=== PATIENT | female | born 1995 | race Caucasian/White ===

== ENCOUNTER 2017-01-19 13:41 | Emergency (ER) | payer MEDICAID ==
[2017-01-19 13:41] VITALS: BMI 30.8
[2017-01-19 13:59] VITALS: RESP 18; TEMP 98.2; O2SAT 99
[2017-01-19] MEDS ORDERED: Sodium Chloride 0.9% 1,000 ML IV ONE (14:20)
[2017-01-19] MEDS ORDERED: Sodium Chloride 0.9% 1,000 ML ONE (14:36)
[2017-01-19 14:40] LABS: BASO % 0.8 % (0.0-2.0); EOS # 0.1 K/uL (0.0-0.7); EOS % 1.9 % (0.0-4.0); LYMPH % 39.6 % (20.0-40.0); MEAN CELL VOLUME 86.1 fL (81.0-99.0); MEAN CORPUSCULAR HEMOGLOBIN 27.2 pg (27.0-31.0); MEAN CORPUSCULAR HGB CONC 31.6 g/dL (33.0-37.0); MEAN PLATELET VOLUME 8.1 fL (7.2-11.7); MONO # 0.6 K/uL (0.0-0.8); MONO % 11.2 % (0.0-10.0); RED CELL DISTRIBUTION WIDTH 12.6 % (11.5-14.5); WHITE BLOOD COUNT 5.1 K/uL (4.8-10.8)
--- NOTE | 2017-01-19 14:44 | C.PDOC ---
History Of Present Illness 21 y/o female c/o occasional mild episodes of nausea, vomiting, loose stools, and dizziness that has been going on for 4 days. Pt notes eating and drinking well, but with persistent mild N/V/D, and dizziness. Pt denies fever, chills, abdominal pain, vaginal bleeding or discharge, chest pain, dysuria, hematuria, or any other complaints. Pt notes being possibly with her last menstrual period being December 03. Time Seen by Provider: 01/19/17 14:16 Chief Complaint (Nursing): GI Problem History Per: Patient History/Exam Limitations: no limitations Onset/Duration Of Symptoms: Days Current Symptoms Are (Timing): Still Present Severity: Mild Recent travel outside of the [place]: No Additional History Per: Patient Abnormal Vaginal Bleeding: No Last Menstral Period: December 03 Past Medical History Reviewed: Historical Data, Nursing Documentation, Vital Signs Vital Signs: Last Vital Signs Temp 98.2 F 01/19/17 13:58 Pulse 75 01/19/17 13:58 Resp 18 01/19/17 13:58 BP 93/65 L 01/19/17 13:58 Pulse Ox 99 01/19/17 14:57 - [employer] Procedures MANUAL ASSIST DELIV NEC (06/10/13) Family History: States: Unknown Family Hx - Social History Hx Tobacco Use: No Hx Alcohol Use: No Hx Substance Use: No - Immunization History Hx Tetanus Toxoid Vaccination: No Hx Influenza Vaccination: No Hx Pneumococcal Vaccination: No Review Of Systems Except As Marked, All Systems Reviewed And Found Negative. Constitutional: Negative for: Fever, Chills Cardiovascular: Negative for: Chest Pain Gastrointestinal: Positive for: Nausea, Vomiting, Diarrhea. Negative for: Abdominal Pain Genitourinary: Negative for: Dysuria, Hematuria, Vaginal Discharge, Vaginal Bleeding Neurological: Positive for: Dizziness Physical Exam - Physical Exam Appears: Non-toxic, No Acute Distress Skin: Warm, Dry Head: Atraumatic, Normacephalic Eye(s): bilateral: Normal Inspection Oral Mucosa: Moist Throat: Normal, No Exudate Chest: Symmetrical Cardiovascular: Rhythm Regular Respiratory: Normal Breath Sounds, No Accessory Muscle Use, No Rales, No Rhonchi , No Wheezing Gastrointestinal/Abdominal: Soft, No Tenderness, No Guarding, No Rebound Back: Normal Inspection, No CVA Tenderness Neurological/Psych: Oriented x3, Normal Speech, Normal Cognition Gait: Steady ED Course And Treatment - Laboratory Results Result Diagrams: 01/19/17 14:34 01/19/17 14:34 Lab Interpretation: No Acute Changes Interpretation Of Abnormal: [facility] [place] [address].0 Urine POC: Positive O2 Sat by Pulse Oximetry: 99 (RA) Pulse Ox Interpretation: Normal Reevaluation Time: 16:30 Reassessment Condition: Improved (after IV fluids) Medical Decision Making Medical Decision Making: Impression: 21 y/o female c/o mild occasional episodes of nausea, vomiting, loose stools, and dizziness that has been going on for 4 days. Plans: -Blood labs -IV fluids -Reassess Disposition Counseled Patient/Family Regarding: Studies Performed, Diagnosis, Need For Followup - Disposition Referrals: [facility] [Outside] Disposition: HOME/ ROUTINE Disposition Time: 16:30 Condition: IMPROVED Instructions: (ED) - Clinical Impression Clinical Impression: - Scribe Statement The provider has reviewed the documentation as recorded by the Scribe Kingston portillo All medical record entries made by the Bryanibadi were at my direction and personally dictated by me. I have reviewed the chart and agree that the record accurately reflects my personal performance of the history, physical exam, medical decision making, and the department course for this patient. I have also personally directed, reviewed, and agree with the discharge instructions and disposition.
[2017-01-19 14:59] LABS: CHLORIDE 104 mmol/L (98-107); POTASSIUM 3.5 mmol/L (3.6-5.2); SODIUM 137 mmol/L (132-148)
[2017-01-19 15:01] LABS: ALB/GLOB RATIO 1.2 (1.0-2.1); ALKALINE PHOSPHATASE 54 U/L (38-126); AST/SGOT 20 U/L (14-36); BILIRUBIN,TOTAL 0.6 mg/dL (0.2-1.3); BLOOD UREA NITROGEN 4 mg/dL (7-17); CARBON DIOXIDE 22 mmol/L (22-30); GFR AFRICAN-AMERICAN > 60; TOTAL PROTEIN 7.4 g/dL (6.3-8.3)
[2017-01-19 15:02] LABS: ALT/SGPT 17 U/L (9-52); CALCIUM 9.2 mg/dl (8.6-10.4); GLUCOSE,RANDOM 82 mg/dL (65-105)
[2017-01-19 15:11] LABS: RBC URINE 1 /hpf (0-3); URINE BILIRUBIN NEGATIVE (NEGATIVE); URINE BLOOD NEGATIVE (NEGATIVE); URINE COLOR Yellow (YELLOW); URINE GLUCOSE (UA) NORMAL (Normal); URINE KETONE NEGATIVE (NEGATIVE); URINE LEUKOCYTE ESTERASE 1+ Leu/uL (Negative); URINE PROTEIN 1+ mg/dL (NEGATIVE); WBC URINE 4 /hpf (0-5)
[2017-01-19 17:08] VITALS: BP 100/69; PULSE 71
== END 2017-01-19 17:08 | disposition home or self-care (01) ==
LOC: C.ER 13:41
DX: O26.891 Other specified pregnancy related conditions, first trimester (principal); Z3A.00 Weeks of gestation of pregnancy not specified
CPT/HCPCS: 80053; 81001; 84702; 84703; 85025; 96360; 99284; J7040

== ENCOUNTER 2017-10-10 02:57 | Emergency (ER) | payer MEDICAID ==
[2017-10-10 02:58] VITALS: BMI 30.8
[2017-10-10 03:16] VITALS: O2SAT 98
[2017-10-10] MEDS ORDERED: Sodium Chloride 0.9% 1,000 ML IV ONE (03:27)
[2017-10-10 03:43] LABS: HCG,QUALITATIVE URINE NEGATIVE (NEGATIVE)
[2017-10-10 03:45] LABS: URINE BILIRUBIN NEGATIVE (NEGATIVE); URINE BLOOD NEGATIVE (NEGATIVE); URINE CLARITY Hazy (Clear); URINE COLOR Yellow (YELLOW); URINE GLUCOSE (UA) NORMAL (Normal); URINE LEUKOCYTE ESTERASE TRACE Leu/uL (Negative); URINE PROTEIN NEGATIVE (NEGATIVE)
--- NOTE | 2017-10-10 03:47 | C.PDOC ---
History Of Present Illness 22 year old female with a PMHx of morbid obesity presents to the ER complaining of abdominal pain since Tuesday. Pain worsens at the epigastric region. Patient recently traveled from the [place] 1 week ago. No fever, chills, vomiting, diarrhea or other complaints. Time Seen by Provider: 10/10/17 03:16 Chief Complaint (Nursing): Abdominal Pain History Per: Patient History/Exam Limitations: no limitations Onset/Duration Of Symptoms: Days (x 2) Current Symptoms Are (Timing): Still Present Location Of Pain/Discomfort: Epigastric Past Medical History Reviewed: Historical Data, Nursing Documentation, Vital Signs Vital Signs: Last Vital Signs Temp 98.4 F 10/10/17 05:36 Pulse 73 10/10/17 05:36 Resp 20 10/10/17 05:36 BP 93/65 L 10/10/17 05:36 Pulse Ox 98 10/10/17 05:36 - Medical History PMH: No Chronic Diseases - [employer] Procedures MANUAL ASSIST DELIV NEC (06/10/13) Family History: States: Unknown Family Hx - Social History Hx Tobacco Use: No Hx Alcohol Use: No Hx Substance Use: No - Immunization History Hx Tetanus Toxoid Vaccination: No Hx Influenza Vaccination: No Hx Pneumococcal Vaccination: No Review Of Systems Except As Marked, All Systems Reviewed And Found Negative. Constitutional: Negative for: Fever, Chills Gastrointestinal: Positive for: Abdominal Pain. Negative for: Vomiting, Diarrhea Physical Exam - Physical Exam Appears: Non-toxic, No Acute Distress Skin: Normal Color, Warm, Dry Head: Atraumatic, Normacephalic Eye(s): bilateral: Normal Inspection, PERRL, EOMI Nose: Normal Oral Mucosa: Moist Neck: Normal ROM, Supple Chest: Symmetrical Cardiovascular: Rhythm Regular, No Murmur Respiratory: Normal Breath Sounds, No Accessory Muscle Use Gastrointestinal/Abdominal: Soft, Tenderness (mild epigastric tenderness), No Guarding, No Rebound Extremity: Bilateral: Atraumatic, Normal ROM, Painful To Bear Weight Neurological/Psych: Oriented x3, Normal Speech ED Course And Treatment - Laboratory Results Result Diagrams: 10/10/17 04:36 10/10/17 04:36 O2 Sat by Pulse Oximetry: 98 (RA) Pulse Ox Interpretation: Normal Medical Decision Making Medical Decision Making: Impression: 22 year old with abdominal pain suspect gastritis pancreatitis pud. - bedside us no e/o of cholecystitis Time: 3:27 Initial Plan: * Bilirubin * CMP * Lipase * CBC * PTT * PT * Urinalysis * Urine preg * IV fluids * Zofran 4 mg IVP * Protonix 40 mg IVP * Reevaluation pt reassessed all symptoms resolved smiling abd soft no ttp. pt asking for dc. labs unremarkable. advise close outpt fu and return precautions Disposition - Disposition Referrals: El Vasquez MD [Staff Provider] - Disposition: HOME/ ROUTINE Disposition Time: 04:54 Condition: STABLE Additional Instructions: please follow up with your doctor. return to er with worsening symptoms or concerns Prescriptions: Famotidine [Pepcid] 20 mg PO DAILY #20 tab Instructions: Acute Abdomen (Belly Pain) Forms: [employer] (Arabic) - Clinical Impression Clinical Impression: Abdominal pain - Scribe Statement The provider has reviewed the documentation as recorded by the Rosa Gagnon Provider Attestation: All medical record entries made by the Bryanibe were at my direction and personally dictated by me. I have reviewed the chart and agree that the record accurately reflects my personal performance of the history, physical exam, medical decision making, and the department course for this patient. I have also personally directed, reviewed, and agree with the discharge instructions and disposition.
[2017-10-10] MEDS ORDERED: Sodium Chloride 0.9% 1,000 ML ONE (04:07)
[2017-10-10 04:40] LABS: BASO # 0.1 K/uL (0.0-0.2); BASO % 0.8 % (0.0-2.0); EOS # 0.2 K/uL (0.0-0.7); EOS % 2.9 % (0.0-4.0); HEMOGLOBIN 12.9 g/dL (11.0-16.0); LYMPH # 1.3 K/uL (1.0-4.3); LYMPH % 19.6 % (20.0-40.0); MEAN CORPUSCULAR HEMOGLOBIN 28.3 pg (27.0-31.0); MEAN CORPUSCULAR HGB CONC 32.5 g/dL (33.0-37.0); MEAN PLATELET VOLUME 7.8 fL (7.2-11.7); MONO # 0.7 K/uL (0.0-0.8); MONO % 9.8 % (0.0-10.0); NEUT # 4.5 K/uL (1.8-7.0); NEUT % 66.9 % (50.0-75.0); NRBC % 0.1 % (0.0-2.0); RBC 4.55 Mil/uL (3.80-5.20); WHITE BLOOD COUNT 6.8 K/uL (4.8-10.8)
[2017-10-10 04:47] LABS: PROTHROMBIN TIME 11.6 SECONDS (9.7-12.2)
[2017-10-10 04:52] LABS: ALB/GLOB RATIO 1.1 (1.0-2.1); ALBUMIN 4.1 g/dL (3.5-5.0); ALT/SGPT 32 U/L (9-52); AST/SGOT 30 U/L (14-36); BILIRUBIN,DIRECT 0.3 mg/dL (0.0-0.4); BLOOD UREA NITROGEN 8 mg/dL (7-17); GFR AFRICAN-AMERICAN > 60; GFR NON-AFRICAN AMERICAN > 60; LIPASE 90 U/L (23-300)
[2017-10-10 05:38] VITALS: BP 93/65; PULSE 73; RESP 20; TEMP 98.4
== END 2017-10-10 05:38 | disposition home or self-care (01) ==
LOC: C.ER 02:57
DX: R10.9 Unspecified abdominal pain (principal); E66.01 Morbid (severe) obesity due to excess calories
CPT/HCPCS: 80053; 81001; 82248; 83690; 84703; 85025; 85610; 85730; 96361; 96374; 96375; 99284; C9113; J2405; J7040

== ENCOUNTER 2018-05-15 11:54 | Emergency (ER) | payer MEDICAID ==
[2018-05-15 11:54] VITALS: BMI 30.8
[2018-05-15 12:28] VITALS: RESP 18
[2018-05-15 13:47] LABS: BASO # 0.1 K/uL (0.0-0.2); BASO % 0.8 % (0.0-2.0); EOS # 0.2 K/uL (0.0-0.7); EOS % 3.1 % (0.0-4.0); HEMOGLOBIN 14.2 g/dL (11.0-16.0); LYMPH # 2.2 K/uL (1.0-4.3); LYMPH % 30.2 % (20.0-40.0); MEAN CELL VOLUME 86.3 fL (81.0-99.0); MEAN CORPUSCULAR HEMOGLOBIN 28.1 pg (27.0-31.0); MEAN CORPUSCULAR HGB CONC 32.5 g/dL (33.0-37.0); MEAN PLATELET VOLUME 8.3 fL (7.2-11.7); MONO # 0.7 K/uL (0.0-0.8); MONO % 9.3 % (0.0-10.0); NEUT # 4.1 K/uL (1.8-7.0); NEUT % 56.6 % (50.0-75.0); NRBC % 0.1 % (0.0-2.0); RBC 5.06 Mil/uL (3.80-5.20); RED CELL DISTRIBUTION WIDTH 13.1 % (11.5-14.5); WHITE BLOOD COUNT 7.3 K/uL (4.8-10.8)
[2018-05-15 13:51] LABS: HCG,QUALITATIVE URINE NEGATIVE (NEGATIVE)
[2018-05-15 13:56] LABS: SQUAMOUS EPITHIAL 51 /hpf (0-5); URINE BACTERIA RARE (<OCC); URINE BILIRUBIN NEGATIVE (NEGATIVE); URINE BLOOD NEGATIVE (NEGATIVE); URINE CLARITY Hazy (Clear); URINE COLOR Yellow (YELLOW); URINE GLUCOSE (UA) NORMAL (Normal); URINE LEUKOCYTE ESTERASE 1+ Leu/uL (Negative); URINE PROTEIN NEGATIVE (NEGATIVE); URINE UROBILINOGEN NORMAL mg/dL (0.2-1.0)
[2018-05-15 14:31] LABS: ALB/GLOB RATIO 1.4 (1.0-2.1); ALBUMIN 4.8 g/dL (3.5-5.0); ALT/SGPT 27 U/L (9-52); AST/SGOT 38 U/L (14-36); BLOOD UREA NITROGEN 7 mg/dL (7-17); CALCIUM 9.4 mg/dl (8.6-10.4); GFR NON-AFRICAN AMERICAN > 60; LIPASE 136 U/L (23-300)
[2018-05-15 14:43] VITALS: BP 123/79; PULSE 84; TEMP 97.6
--- NOTE | 2018-05-15 14:46 | C.PDOC ---
History Of Present Illness 23-year-old female, denies significant PMHx, presents to the emergency department with complaints of suprapubic abdominal pain since this morning. Patient denies any fevers, chills, sore throat, cough, chest pain, vomiting, diarrhea, UTI symptoms , vaginal irritation or discharge. Ambulate to Ed for evaluation, not in any apparent distress.. Time Seen by Provider: 05/15/18 13:26 Chief Complaint (Nursing): Abdominal Pain History Per: Patient History/Exam Limitations: no limitations Current Symptoms Are (Timing): Still Present Severity: Moderate Location Of Pain/Discomfort: Suprapubic Past Medical History Reviewed: Historical Data, Nursing Documentation, Vital Signs Vital Signs: Last Vital Signs Temp 98.1 F 05/15/18 12:24 Pulse 77 05/15/18 12:24 Resp 18 05/15/18 12:24 BP 112/80 05/15/18 12:24 Pulse Ox 96 05/15/18 12:24 - [employer] Procedures MANUAL ASSIST DELIV NEC (06/10/13) Family History: States: No Known Family Hx - Social History Hx Tobacco Use: No Hx Alcohol Use: No Hx Substance Use: No - Immunization History Hx Tetanus Toxoid Vaccination: No Hx Influenza Vaccination: No Hx Pneumococcal Vaccination: No Review Of Systems Constitutional: Negative for: Fever, Chills Respiratory: Negative for: Shortness of Breath Gastrointestinal: Negative for: Nausea, Vomiting Genitourinary: Positive for: Pelvic Pain. Negative for: Dysuria, Frequency, Incontinence, Hematuria, Vaginal Discharge, Vaginal Bleeding Musculoskeletal: Negative for: Back Pain Skin: Negative for: Rash Neurological: Negative for: Weakness, Numbness, Headache, Dizziness Physical Exam - Physical Exam Appears: Well, Non-toxic, No Acute Distress Skin: Warm, Dry, No Rash Head: Normacephalic Eye(s): bilateral: PERRL Oral Mucosa: Moist, No Drooling Lips: Normal Appearing Throat: No Erythema, No Drooling Neck: Normal ROM, Trachea Midline, Supple Cardiovascular: Rhythm Regular, No Murmur Respiratory: Normal Breath Sounds, No Accessory Muscle Use Gastrointestinal/Abdominal: Soft, Tenderness (MILD SUPRAPUBIC), No Distention, No Guarding, No Rebound Back: No CVA Tenderness Extremity: Normal ROM, No Pedal Edema, No Deformity Neurological/Psych: Oriented x3, Normal Speech ED Course And Treatment - Laboratory Results Result Diagrams: 05/15/18 13:41 05/15/18 14:13 Lab Interpretation: Normal Urine POC: Negative O2 Sat by Pulse Oximetry: 96 Pulse Ox Interpretation: Normal (RA) Progress Note: On re-eval, pt is afebrile, hemodynamicalys table. non-toxic. Tolerate Po well in ED. ENT: no acute findings. neck: Supple, (-) meningeal sign. Lungs: CTA B/L, BS equal B/L. Abd: benign, (-) guarding, (-) rebound, (- ) RLQ tenderness. back: (-) CVA tenderness. Blood work review- normal, no acute leukocytosis. UA (+) WBC, RBC. Preg (-). Pt has clinical findings c/w UTI. Pt advised oBS for any new chanbges to abd. pain-return to ED at any time if any sign of appendicitis. Pt understand and agrees with discharge. Disposition Counseled Patient/Family Regarding: Studies Performed, Diagnosis, Need For Followup, Rx Given - Disposition Referrals: Jorge Jackson MD [Staff Provider] - Disposition: HOME/ ROUTINE Disposition Time: 14:20 Condition: STABLE Additional Instructions: Encourage fluids Take medication as prescribed OBSERVE FOR ANY SIGN OF APPENDICITIS-FEVER, INCREASE ABDOMINAL PAIN, SHIFT ABDOMINAL PAIN TO RIGHT, VOMITING OR ANY OTHER NEW CHANGES-RETURN TO ED IMMEDIATELY FOR RE-EVALUATION. Follow up with PMD in 2-3 days for re-evaluation. Prescriptions: Nitrofurantoin Macrocrystals [Macrobid] 1 cap PO BID #14 cap Instructions: Urinary Tract Infections in Adults Forms: [facility] (Ivorian) - Clinical Impression Clinical Impression: UTI (urinary tract infection) - Scribe Statement The provider has reviewed the documentation as recorded by the Scribe (Jessica Wright) All medical record entries made by the Scribe were at my direction and personally dictated by me. I have reviewed the chart and agree that the record accurately reflects my personal performance of the history, physical exam, medical decision making, and the department course for this patient. I have also personally directed, reviewed, and agree with the discharge instructions and disposition.
[2018-05-15 14:47] VITALS: O2SAT 96
== END 2018-05-15 15:32 | disposition home or self-care (01) ==
LOC: C.ER 11:54
DX: N39.0 Urinary tract infection, site not specified (principal)